=== PATIENT | male | born 1965 | race Caucasian/White ===

== ENCOUNTER 2019-08-03 10:42 | Outpatient (CLI) | payer BC, OTHER ==
--- NOTE | 2019-08-03 11:51 | RAD ---
EXAM: Two views chest PROVIDED CLINICAL HISTORY: Preoperative evaluation COMPARISON: None FINDINGS: Cardiac silhouette and pulmonary vasculature are within normal limits. The lungs are clear. Degenera tive changes are seen in the spine. There is calcification of the anterior longitudinal ligament. Vascular calcifications are seen in the thoracic aorta. IMPRESSION: No acute cardiopulmonary process.
== END 2019-08-03 10:43 | disposition home or self-care (01) ==
LOC: NAV RAD 10:42
PROVIDERS: ATTEND Family Medicine
DX: Z01.818 Encounter for other preprocedural examination (principal)
CPT/HCPCS: 71046

== ENCOUNTER 2020-03-01 11:01 | Outpatient (CLI) | payer BC ==
--- NOTE | 2020-03-01 11:40 | RAD ---
Exam: XR Knee Lt 4 View STANDARD HISTORY: Left knee pain. History of prior knee replacement. Patient also complains of redness and swelling abo ut the left knee. Infection left knee. COMPARISON: None FINDINGS: Postoperative changes left knee are noted. Left total knee prosthesis is seen. There is a medial plat e and multiple screws as well as cerclage wires transfixing the distal left femur. No hardware complication is appreciated. Heterotopic ossification is seen about the left knee. No acute fracture, dislocation, or other acute osseous abnormality is identified. A joint effusion is seen in the suprapatellar location. IMPRESSION: 1. Postoperative changes left knee without evidence of an acute osseous abnormality. 2. Left knee joint effusion.
== END 2020-03-01 11:02 | disposition home or self-care (01) ==
LOC: NAV RAD 11:01
PROVIDERS: ATTEND Family Medicine
DX: T84.54XD Infection and inflammatory reaction due to internal left knee prosthesis, subsequent encounter (principal); M25.462 Effusion, left knee; Z98.890 Other specified postprocedural states